=== PATIENT | female | born 1960 | race Caucasian/White ===

== ENCOUNTER → 2016-08-31 | Outpatient (CLI) | payer MEDICAID | LOC: FIMAGING 07:53 | PROVIDERS: ATTEND Family Medicine | DX: M32.9 Systemic lupus erythematosus, unspecified (principal); R74.0 Nonspecific elevation of levels of transaminase and lactic acid dehydrogenase [LDH]; M25.552 Pain in left hip; K76.89 Other specified diseases of liver; K82.4 Cholesterolosis of gallbladder ==

== ENCOUNTER 2016-09-08 13:43 | Emergency (ER) | payer MEDICAID ==
--- NOTE | 2016-09-08 14:56 | EDPHY ---
HPI/HX/ROS/PE/MDM Narrative: CHIEF COMPLAINT: Elevated liver tests. HISTORY OF PRESENT ILLNESS: This patient is a 56 year old female with history of lupus presenting for evaluation of elevated liver tests over the last month. Last month in early August , she states she began to note abdominal bloating, lethargy, and hip pain, similar to her symptoms at the time of her lupus diagnosis 30 years ago. She states she was treated with prednisone taper. She reports she has had four successive blood tests, and her liver tests have been more elevated each time. She has had abdominal ultrasound which was unremarkable other than lobular liver. Hepatitis panels negative. She endorses daily loose stools. She denies recent travel or other illness. No fever, chills, chest pain, shortness of breath, palpitations, vomiting, headache, lightheadedness. REVIEW OF SYSTEMS: Aside from elements discussed in the HPI, a comprehensive 10-point review of systems was reviewed and is negative. PAST MEDICAL HISTORY: Lupus SOCIAL HISTORY: Occasional alcohol use. VITAL SIGNS: Reviewed by me GENERAL: Well-developed, well-nourished, resting comfortably in no respiratory distress. HEENT: Atraumatic. Eyes: Scleral icterus, no injection. Mouth: moist mucous membranes. No erythema or lesions. Neck: supple with no adenopathy. LUNGS: Clear to auscultation bilaterally, no wheezes, rhonchi or rales. CARDIAC: Regular rate and rhythm, no rubs, murmurs or gallops. CHEST: Right breast firm, masses present, skin plaques. ABDOMEN: Distended, palpable enlarged liver. Spleen not palpable. No fluid wave. BACK: No CVA tenderness. EXTREMITIES: No trauma. No edema. Range of motion is normal throughout. NEURO: Alert and oriented, grossly nonfocal. SKIN: Jaundiced. Warm and dry, no rash. PSYCHIATRIC: Normal mentation, no agitation. Portions of this note were transcribed by a certified medical aide. I personally performed a history, physical exam, medical decision making, and confirmed accuracy of information the transcribed note. ED Course: 56-year-old female with history of lupus presenting with progressively worsening liver function tests and increasing bilirubin. Patient had an ultrasound performed a week ago demonstrating heterogeneous changes the liver and lesions which were suspicious for undiagnosed malignancy. CT scan was recommended. On my examination the patient also has a significantly enlarged, firm, nodular, tender right breast which she believes is related to lupus. She has not had a mammogram nor an ultrasound for many years. 15:[address] France and Dr. Monteiro, radiologists, regarding patient. CT scan of the chest and abdomen pelvis with triple phase liver images was ordered. Patient's bilirubin is 14.7. Alk phosphatase is continue to elevated is now 1340. Patient's CT scan is concerning for multiple lesions in the liver. Images of the breast seen on the CT scan of the chest or also concerning for breast cancer. These results were discussed with the patient. She was offered admission to the hospital. Patient has declined admission to the hospital would prefer to have the remainder of her care coordinated by her primary care physician, Dr. Lion. Attempts were made to transfer the patient to [facility], however, [facility] does not have inpatient beds at this time. Patient understands that we would like to admit her to [facility] but she wishes to be discharged for further follow up. MDM: Differential diagnoses for the patient's symptom complex was considered including but not limited to hepatitis, viral hepatitis, lupus hepatitis, liver failure, cirrhosis, malignancy, metastatic disease, ascites. - Data Points Laboratory Results: Laboratory Results 09/08/16 15:15 09/08/16 15:15 Medications Given: Discontinued Medications Sodium Chloride (Ns) 1,000 mls @ 0 mls/hr IV ONCE ONE; Wide Open PRN Reason: Protocol Stop: 09/08/16 15:04 Last Admin: 09/08/16 15:18 Dose: 1,000 mls General Time Seen by Provider: 09/08/16 14:39 Initial Vital Signs: Initial Vital Signs Temperature (C) 36.7 C 09/08/16 13:46 Heart Rate 96 09/08/16 13:46 Respiratory Rate 18 09/08/16 13:46 Blood Pressure 135/94 H 09/08/16 13:46 O2 Sat (%) 96 09/08/16 13:46 O2 Delivery Mode Room Air Allergies/Adverse Reactions: beestings Allergy (Uncoded 09/08/16 13:50) salmon Allergy (Uncoded 09/08/16 13:50) trout Allergy (Uncoded 09/08/16 13:50) Home Medications: Medication Instructions Recorded hydrOXYzine HCL [hydrOXYzine HCL 25 mg PO 09/08/16 (RX)] predniSONE 20 mg PO 09/08/16 Departure - Departure Disposition: Home, Routine, Self-Care Clinical Impression: Cirrhosis, Hyperbilirubinemia Condition: Good Instructions: Cirrhosis (ED), Ascites (ED) Additional Instructions: You been offered admission to the hospital. We understand that you would prefer to have this treatment coordinated by your primary care physician, Dr. Lion. It is important that you follow up with Dr. Lion as soon as possible. You need to obtain a biopsy of your breast as well as a biopsy of your liver lesions. Worsening liver failure may lead to increasing jaundice, bleeding, and increasing distention of your abdomen with fluid. If you develop a fever, vomiting, worsening abdominal pain, worsening jaundice, lightheadedness, dizziness, vomiting, or diarrhea, please proceed to the emergency department or seek care urgently. Referrals: Maribell Mandel MD [Primary Care Provider] - As per Instructions Report Scribed for: Goldie Beyer Report Scribed by: Elham Bergeron Date of Report: 09/08/16 Time of Report: 14:43
[2016-09-08] MEDS ORDERED: NS 1,000 ML IV ONE (15:03)
[2016-09-08] MEDS ORDERED: IOPAMIDOL (ISOVUE-300) 100 ML BTL ONE ×2 (15:20→15:31)
[2016-09-08 15:28] LABS: % IMMATURE GRANULYOCYTES 0.4 % (0.0-1.1); ABSOLUTE IMMATURE GRANULOCYTES 0.02 10^3/uL (0.00-0.10); ADD DIFF? NO; ADD MORPH? NO; ADD SCAN? NO; ATYPICAL LYMPHOCYTE FLAG 0 (0-99); FRAGMENT RBC FLAG 10 (0-99); HEMATOCRIT 35.9 % (38.0-47.0); HEMOGLOBIN 12.1 g/dL (12.6-16.3); LEFT SHIFT FLG 10 (0-99); LIPEMIA HEMOLYSIS FLAG 80 (0-99); MEAN CELL HEMOGLOBIN CONCENTR. 33.7 g/dL (32.4-36.7); MEAN CELL VOLUME 86.1 fL (81.5-99.8); MEAN PLATELET VOLUME 10.1 fL (8.7-11.7); PLATELET CLUMPS FLAG 0 (0-99); PLATELET COUNT 359 10^3/uL (150-400); RED BLOOD CELL COUNT 4.17 10^6/uL (4.18-5.33); RED CELL DISTRIBUTION WIDTH 18.9 % (11.5-15.2)
[2016-09-08 15:38] LABS: INR 0.98 (0.83-1.16); PROTIME(PATIENT) 12.9 SEC (12.0-15.0)
[2016-09-08 15:44] LABS: ALANINE AMINOTRANSFERASE 320 IU/L (9-52); ALBUMIN 3.3 g/dL (3.5-5.0); ALKALINE PHOSPHATASE 1340 IU/L (38-126); ANION GAP 14 mEq/L (8-16); ASPARTATE AMINOTRANSFERASE 486 IU/L (14-46); BILIRUBIN,TOTAL 14.7 mg/dL (0.1-1.4); BILIRUBIN-CONJUGATED 13.3 mg/dL (0.0-0.5); BILIRUBIN-UNCONJUGATED 1.4 mg/dL (0.0-1.1); C-REACTIVE PROTEIN 47.9 mg/L (<10.0); CALCIUM 9.1 mg/dL (8.5-10.4); CARBON DIOXIDE 16 mEq/l (22-31); CHLORIDE 112 mEq/L (97-110); CREATININE 0.7 mg/dL (0.6-1.0); GLOMERULAR FILTRATION RATE > 60; GLUCOSE 99 mg/dL (70-100); POTASSIUM 4.2 mEq/L (3.5-5.2); SODIUM 142 mEq/L (134-144); TOTAL PROTEIN 6.6 g/dL (6.3-8.2)
[2016-09-08 16:21] VITALS: O2SAT 95
[2016-09-08 17:04] VITALS: BP 151/95; PULSE 85; RESP 16; TEMP 98.1
== END 2016-09-08 17:04 | disposition home or self-care (01) ==
LOC: UNDOADMIN 15:58
DX: K74.60 Unspecified cirrhosis of liver (principal); E80.6 Other disorders of bilirubin metabolism
CPT/HCPCS: Q9967